=== PATIENT | male | born 1945 | race Caucasian/White ===

== ENCOUNTER 2024-11-07 12:49 | Emergency (ER) | payer MEDICARE, OTHER ==
[2024-11-07] MEDS ORDERED: Sodium Chloride 0.9% 10 ML Syringe FLUSH PRN (12:59)
[2024-11-07 13:21] LABS: BASOPHILS PERCENT AUTO 0.3 % (0.0-1.0); EOSINOPHILS PERCENT AUTO 1.9 % (1.0-3.0); HEMATOCRIT 43.9 % (40.0-54.0); HEMOGLOBIN 14.3 g/dL (14.0-18.0); LYMPHOCYTES PERCENT AUTO 13.5 % (20.5-50.1); MEAN CORPUSCULAR HEMOGLOBIN 32.1 pg (27.0-34.0); MEAN CORPUSCULAR HGB CONC 32.6 g/dL (33.0-35.0); MEAN CORPUSCULAR VOLUME 98.4 fL (80-100); MONOCYTES PERCENT AUTO 13.8 % (2-8); NEUTROPHILS PERCENT AUTO 70.5 % (42.2-75.2); PLATELET COUNT,PLT 139 10^3/uL (150-450); RED BLOOD CELL COUNT 4.46 10^6/uL (4.6-6.2); WHITE BLOOD CELL COUNT,WBC 7.9 10^3/uL (5.0-10.0)
[2024-11-07 13:22] LABS: AMPHETAMINES,URINE NEGATIVE (NEGATIVE); APPEARANCE,URINE CLOUDY (CLEAR); BARBITURATES,URINE NEGATIVE (NEGATIVE); BENZODIAZEPINE,URINE NEGATIVE (NEGATIVE); BILIRUBIN,URINE NEGATIVE (NEGATIVE); COLOR,URINE YELLOW (YELLOW); GLUCOSE,URINE NEGATIVE (NEGATIVE); KETONES,URINE NEGATIVE (NEGATIVE); LEUKOCYTE ESTERASE,URINE SMALL (NEGATIVE); MDMA (ECSTASY), URINE NEGATIVE (NEGATIVE); METHADONE,URINE NEGATIVE (NEGATIVE); METHAMPHETAMINES,URINE NEGATIVE (NEGATIVE); NITRITE,URINE NEGATIVE (NEGATIVE); OCCULT BLOOD,URINE SMALL (NEGATIVE); OPIATES,URINE NEGATIVE (NEGATIVE); OXYCODONE,URINE NEGATIVE (NEGATIVE); PHENCYCLIDINE,URINE NEGATIVE (NEGATIVE); PROTEIN,URINE 100 (NEGATIVE); TCA,URINE NEGATIVE (NEGATIVE)
[2024-11-07 13:30] LABS: BACTERIA,URINE FEW /HPF (0-FEW/HPF); EPITHELIAL CELLS,URINE RARE /HPF (NOT SEEN); WBC,URINE >100 /HPF (0-5/HPF)
[2024-11-07 13:39] LABS: INR 1.4 (0.9-1.2); PROTHROMBIN TIME 14.6 SEC (9.0-12.0)
[2024-11-07 13:42] LABS: ALANINE AMINOTRANSFERASE,ALT 20 U/L (16-63); ALBUMIN 2.4 g/dL (3.4-5.0); ALKALINE PHOSPHATASE 178 U/L (46-116); ANION GAP 12.4 mEq/L (7-13); ASPARTATE AMNIOTRANSFERASE,AST 33 U/L (15-37); BILIRUBIN TOTAL 2.6 mg/dL (0.2-1.0); BLOOD UREA NITROGEN,BUN 27 mg/dL (7-18); BUN/CREATININE RATIO 17.1 (No establ ref range); CALCIUM 9.3 mg/dL (8.5-10.1); CARBON DIOXIDE,CO2 31 mmol/L (21-32); CHLORIDE,CL 109 mmol/L (98-107); CREATININE 1.58 mg/dL (0.70-1.30); LIPASE 36 U/L (16-77); MAGNESIUM 1.9 mg/dL (1.8-2.4); POTASSIUM,K 4.4 mmol/L (3.5-5.1); PROTEIN TOTAL,TP 6.8 g/dL (6.4-8.2); SODIUM,NA 148 mmol/L (136-145)
[2024-11-07 13:43] LABS: LACTIC ACID 2.5 mmol/L (0.4-2.0)
[2024-11-07 13:44] LABS: A/G RATIO 0.55; B-TYPE NATRIURETIC PEPTIDE,BNP 424 pg/ml (0-100); ESTIMATED GFR 44 mL/min (>=60)
[2024-11-07 13:47] LABS: GLUCOSE RANDOM 123 mg/dL (70-99)
[2024-11-07] MEDS: Lactated Ringers 1,000 ML IV ONE (13:56)
[2024-11-07] MEDS: cefTRIAXone 1 GM Vial IVPUSH ONE (14:10)
[2024-11-07] MEDS: Bumetanide 1 MG/4 ML MDV IVPUSH ONE (14:26)
[2024-11-07] MEDS: Take Home: Nitrofurantoin Monohydrate/Macrocrystalline 100 MG, 6 Cap Pack PO ONE (15:23)
[2024-11-07 15:42] VITALS: BP 102/53; PULSE 79
== END 2024-11-07 15:33 | disposition home or self-care (01) ==
LOC: DL.ED 12:49
DX: R41.82 Altered mental status, unspecified (principal); I11.0 Hypertensive heart disease with heart failure; I50.9 Heart failure, unspecified; E66.9 Obesity, unspecified; N39.0 Urinary tract infection, site not specified; Z79.899 Other long term (current) drug therapy
CPT/HCPCS: 36415; 70450; 71045; 80053; 80305; 81001; 82140; 83605; 83690; 83735; 83880; 84484; 85025; 85610; 85730; 86140; 87040; 87086; 87428; 93005; 96361; 96374; 96375; 99285; A9270; J0696; J3490; J7120; 87088; 87186; 93010

== ENCOUNTER 2025-01-18 12:47 | Emergency (ER) | payer MEDICARE, OTHER, MEDICAID ==
[2025-01-18 13:17] VITALS: BP 109/58; PULSE 89
[2025-01-18 13:20] LABS: BASOPHILS PERCENT AUTO 0.3 % (0.0-1.0); HEMATOCRIT 35.8 % (40.0-54.0); HEMOGLOBIN 11.7 g/dL (14.0-18.0); LYMPHOCYTES PERCENT AUTO 13.8 % (20.5-50.1); MEAN CORPUSCULAR HEMOGLOBIN 33.1 pg (27.0-34.0); MEAN CORPUSCULAR HGB CONC 32.7 g/dL (33.0-35.0); MEAN CORPUSCULAR VOLUME 101.4 fL (80-100); MONOCYTES PERCENT AUTO 16.2 % (2-8); NEUTROPHILS PERCENT AUTO 63.7 % (42.2-75.2); PLATELET COUNT,PLT 121 10^3/uL (150-450); RED BLOOD CELL COUNT 3.53 10^6/uL (4.6-6.2); WHITE BLOOD CELL COUNT,WBC 6.7 10^3/uL (5.0-10.0)
[2025-01-18 13:41] LABS: ALANINE AMINOTRANSFERASE,ALT 15 U/L (16-63); ALBUMIN 2.1 g/dL (3.4-5.0); ALKALINE PHOSPHATASE 136 U/L (46-116); ANION GAP 7.2 mEq/L (7-13); ASPARTATE AMNIOTRANSFERASE,AST 29 U/L (15-37); BILIRUBIN TOTAL 1.5 mg/dL (0.2-1.0); BLOOD UREA NITROGEN,BUN 20 mg/dL (7-18); BUN/CREATININE RATIO 15.7 (No establ ref range); CALCIUM 9.1 mg/dL (8.5-10.1); CARBON DIOXIDE,CO2 34 mmol/L (21-32); CHLORIDE,CL 105 mmol/L (98-107); CREATININE 1.27 mg/dL (0.70-1.30); INR 1.3 (0.9-1.2); MAGNESIUM 1.5 mg/dL (1.8-2.4); POTASSIUM,K 4.2 mmol/L (3.5-5.1); PROTEIN TOTAL,TP 7.1 g/dL (6.4-8.2); PROTHROMBIN TIME 13.7 SEC (9.0-12.0); SODIUM,NA 142 mmol/L (136-145)
[2025-01-18 13:48] LABS: GLUCOSE RANDOM 156 mg/dL (70-99)
[2025-01-18 13:50] LABS: A/G RATIO 0.42; ESTIMATED GFR 57 mL/min (>=60)
== END 2025-01-18 14:27 ==
LOC: DL.ED 12:47
DX: E72.20 Disorder of urea cycle metabolism, unspecified (principal); I48.91 Unspecified atrial fibrillation; E78.00 Pure hypercholesterolemia, unspecified; I10 Essential (primary) hypertension; I25.2 Old myocardial infarction; F03.90 Unspecified dementia, unspecified severity, without behavioral disturbance, psychotic disturbance, mood disturbance, and anxiety; J44.9 Chronic obstructive pulmonary disease, unspecified; Z79.51 Long term (current) use of inhaled steroids; Z79.899 Other long term (current) drug therapy; Z79.890 Hormone replacement therapy; W18.39XA Other fall on same level, initial encounter; Y93.89 Activity, other specified
CPT/HCPCS: 36415; 70450; 80053; 82140; 83735; 84484; 85025; 85610; 99284

== ENCOUNTER 2025-03-18 09:09 | Inpatient (IN) | payer MEDICAID, MEDICARE, OTHER ==
[2025-03-18] MEDS ORDERED: Sodium Chloride 0.9% 10 ML Syringe FLUSH PRN (09:16)
[2025-03-18 09:38] LABS: BASOPHILS PERCENT AUTO 0.4 % (0.0-1.0); EOSINOPHILS PERCENT AUTO 7.3 % (1.0-3.0); LYMPHOCYTES PERCENT AUTO 13.8 % (20.5-50.1); MONOCYTES PERCENT AUTO 11.9 % (2-8); NEUTROPHILS PERCENT AUTO 66.6 % (42.2-75.2); PLATELET COUNT,PLT 168 10^3/uL (150-450); RED BLOOD CELL COUNT 4.17 10^6/uL (4.6-6.2); WHITE BLOOD CELL COUNT,WBC 10.5 10^3/uL (5.0-10.0)
[2025-03-18 09:54] LABS: A/G RATIO 0.46; ALANINE AMINOTRANSFERASE,ALT 18 U/L (16-63); ASPARTATE AMNIOTRANSFERASE,AST 41 U/L (15-37); BILIRUBIN TOTAL 2.2 mg/dL (0.2-1.0); BLOOD UREA NITROGEN,BUN 27 mg/dL (7-18); CARBON DIOXIDE,CO2 32 mmol/L (21-32); CHLORIDE,CL 109 mmol/L (98-107); CREATININE 1.42 mg/dL (0.70-1.30); ESTIMATED GFR 49 mL/min (>=60); GLUCOSE RANDOM 184 mg/dL (70-99); POTASSIUM,K 4.7 mmol/L (3.5-5.1); PROTEIN TOTAL,TP 7.6 g/dL (6.4-8.2); SODIUM,NA 147 mmol/L (136-145)
[2025-03-18 09:58] LABS: INR 1.3 (0.9-1.2)
[2025-03-18 10:02] LABS: B-TYPE NATRIURETIC PEPTIDE,BNP 323 pg/ml (0-100)
[2025-03-18] MEDS ORDERED: Ondansetron 4 MG/2 ML SDV IVPUSH PRN (13:11)
[2025-03-18 14:21] LABS: O2 DELIVERY DEVICE NASAL CANNULA
[2025-03-18 14:23] LABS: BASE EXCESS ARTERIAL 5 mmol/L ((-2)-(+3)); BICARBONATE,ARTERIAL 31.3 mmol/L (22-26); O2 SATURATION ARTERIAL 95 % (95-100); PCO2 ARTERIAL 57 mmHg (35-45); PH,ARTERIAL 7.36 (7.35-7.45); PO2 ARTERIAL 88 mmHg (70-100)
[2025-03-18] MEDS: methylPREDNISolone Sodium Succinate 40 MG/1 ML SDV IVPUSH SCH (14:36)
[2025-03-18] MEDS: Heparin Sodium 5,000 Units/ML Vial SUBCUT SCH (14:38)
[2025-03-18] MEDS: Metoprolol Tartrate 5 MG/5 ML SDV IVPUSH SCH (14:40)
[2025-03-19 06:29] LABS: BASOPHILS PERCENT AUTO 0.0 % (0.0-1.0); EOSINOPHILS PERCENT AUTO 0.1 % (1.0-3.0); LYMPHOCYTES PERCENT AUTO 5.7 % (20.5-50.1); MONOCYTES PERCENT AUTO 1.6 % (2-8); NEUTROPHILS PERCENT AUTO 92.6 % (42.2-75.2); PLATELET COUNT,PLT 116 10^3/uL (150-450); RED BLOOD CELL COUNT 3.54 10^6/uL (4.6-6.2); WHITE BLOOD CELL COUNT,WBC 17.8 10^3/uL (5.0-10.0)
[2025-03-19 06:48] LABS: ALANINE AMINOTRANSFERASE,ALT 17.0 U/L (16-63); ASPARTATE AMNIOTRANSFERASE,AST 29.0 U/L (15-37); BILIRUBIN TOTAL 2.0 mg/dL (0.2-1.0); BLOOD UREA NITROGEN,BUN 33.0 mg/dL (7-18); CARBON DIOXIDE,CO2 32.0 mmol/L (21-32); CHLORIDE,CL 111.0 mmol/L (98-107); CREATININE 1.7 mg/dL (0.70-1.30); EST CRCL DRUG DOSING (CG) 31.32 mL/min; GLUCOSE RANDOM 129.0 mg/dL (70-99); POTASSIUM,K 5.0 mmol/L (3.5-5.1); PROTEIN TOTAL,TP 6.4 g/dL (6.4-8.2); SODIUM,NA 148.0 mmol/L (136-145)
[2025-03-19 06:53] LABS: A/G RATIO 0.42; ESTIMATED GFR 40.0 mL/min (>=60)
[2025-03-19 07:40] LABS: O2 DELIVERY DEVICE NASAL CANNULA; O2 SATURATION ARTERIAL 96 % (95-100); PCO2 ARTERIAL 39 mmHg (35-45); PH,ARTERIAL 7.48 (7.35-7.45); PO2 ARTERIAL 80 mmHg (70-100)
[2025-03-19 07:41] LABS: BASE EXCESS ARTERIAL 5 mmol/L ((-2)-(+3)); BICARBONATE,ARTERIAL 28.7 mmol/L (22-26); O2 FLOW RATE 3
[2025-03-19] MEDS: Ampicillin/Sulbactam Na 1.5 GM in Sodium Chloride 0.9% 100 ML IV SCH (12:13)
[2025-03-19] MEDS ORDERED: Lactulose Soln 10 GM/15 ML 30 ML UD Cup PO SCH (14:00)
[2025-03-20 06:26] LABS: BASOPHILS PERCENT AUTO 0.1 % (0.0-1.0); EOSINOPHILS PERCENT AUTO 0.6 % (1.0-3.0); LYMPHOCYTES PERCENT AUTO 10.7 % (20.5-50.1); MONOCYTES PERCENT AUTO 8.4 % (2-8); NEUTROPHILS PERCENT AUTO 80.2 % (42.2-75.2); PLATELET COUNT,PLT 132 10^3/uL (150-450); RED BLOOD CELL COUNT 3.67 10^6/uL (4.6-6.2); WHITE BLOOD CELL COUNT,WBC 12.6 10^3/uL (5.0-10.0)
[2025-03-20 06:41] LABS: BLOOD UREA NITROGEN,BUN 46.0 mg/dL (7-18); CARBON DIOXIDE,CO2 32.0 mmol/L (21-32); CHLORIDE,CL 112.0 mmol/L (98-107); CREATININE 1.56 mg/dL (0.70-1.30); EST CRCL DRUG DOSING (CG) 34.13 mL/min; GLUCOSE RANDOM 103.0 mg/dL (70-99); POTASSIUM,K 3.9 mmol/L (3.5-5.1); SODIUM,NA 149.0 mmol/L (136-145)
[2025-03-20 06:48] LABS: ESTIMATED GFR 44.0 mL/min (>=60)
[2025-03-20] MEDS ORDERED: Potassium Chloride 10 MEQ Tab.ER PO SCH (09:00)
[2025-03-22 07:59] LABS: BASOPHILS PERCENT AUTO 0.2 % (0.0-1.0); EOSINOPHILS PERCENT AUTO 10.8 % (1.0-3.0); LYMPHOCYTES PERCENT AUTO 17.5 % (20.5-50.1); MONOCYTES PERCENT AUTO 11.2 % (2-8); NEUTROPHILS PERCENT AUTO 60.3 % (42.2-75.2); PLATELET COUNT,PLT 78 10^3/uL (150-450); RED BLOOD CELL COUNT 3.67 10^6/uL (4.6-6.2); WHITE BLOOD CELL COUNT,WBC 4.7 10^3/uL (5.0-10.0)
[2025-03-22 08:12] LABS: A/G RATIO 0.47; ALANINE AMINOTRANSFERASE,ALT 18.0 U/L (16-63); ASPARTATE AMNIOTRANSFERASE,AST 29.0 U/L (15-37); BILIRUBIN TOTAL 1.7 mg/dL (0.2-1.0); BLOOD UREA NITROGEN,BUN 32.0 mg/dL (7-18); CARBON DIOXIDE,CO2 31.0 mmol/L (21-32); CHLORIDE,CL 116.0 mmol/L (98-107); CREATININE 1.22 mg/dL (0.70-1.30); EST CRCL DRUG DOSING (CG) 43.65 mL/min; ESTIMATED GFR 59.0 mL/min (>=60); GLUCOSE RANDOM 116.0 mg/dL (70-99); POTASSIUM,K 4.1 mmol/L (3.5-5.1); PROTEIN TOTAL,TP 6.6 g/dL (6.4-8.2); SODIUM,NA 151.0 mmol/L (136-145)
[2025-03-22 10:53] VITALS: BP 112/68; PULSE 62
== END 2025-03-22 10:45 | disposition other institution (70) | DRG 177 ==
LOC: DL.ED 09:09 → DL.MS 11:30 → OBSVTOIN 03-20 18:03
PROVIDERS: ADMIT Internal Medicine; ATTEND Internal Medicine
PROC: 4A133R1 Monitoring of Arterial Saturation, Peripheral, Percutaneous Approach (ICD-10-PCS; principal; 2025-03-18)
DX: J69.0 Pneumonitis due to inhalation of food and vomit (principal); J96.01 Acute respiratory failure with hypoxia; I10 Essential (primary) hypertension; J44.0 Chronic obstructive pulmonary disease with (acute) lower respiratory infection; Z66 Do not resuscitate; F03.90 Unspecified dementia, unspecified severity, without behavioral disturbance, psychotic disturbance, mood disturbance, and anxiety; Z79.890 Hormone replacement therapy; I48.91 Unspecified atrial fibrillation; E03.9 Hypothyroidism, unspecified; K21.9 Gastro-esophageal reflux disease without esophagitis; H91.90 Unspecified hearing loss, unspecified ear; H54.7 Unspecified visual loss; E78.00 Pure hypercholesterolemia, unspecified; I25.2 Old myocardial infarction; M19.90 Unspecified osteoarthritis, unspecified site; N18.30 Chronic kidney disease, stage 3 unspecified; F43.12 Post-traumatic stress disorder, chronic; G40.909 Epilepsy, unspecified, not intractable, without status epilepticus; I12.9 Hypertensive chronic kidney disease with stage 1 through stage 4 chronic kidney disease, or unspecified chronic kidney disease; E66.9 Obesity, unspecified; Z68.29 Body mass index [BMI] 29.0-29.9, adult; Z90.49 Acquired absence of other specified parts of digestive tract; Z87.820 Personal history of traumatic brain injury; Z79.899 Other long term (current) drug therapy
CPT/HCPCS: 36415 ×3; 36600 ×2; 70450; 71045 ×2; 80048; 80053 ×2; 82140; 82803 ×2; 83735 ×2; 83880; 85025 ×3; 85610; 94640 ×4; 96365; 96366; 96367; 96372 ×4; 96375; 96376 ×4; 99285 ×2; G0378 ×5; J0295 ×6; J1644 ×7; J1953 ×4; J2359; J2919 ×2; J3490 ×4; J7620 ×8; S5010; A9270-GY

== ENCOUNTER 2025-04-02 08:21 | Inpatient (IN) | payer OTHER ==
[2025-04-02 09:19] LABS: PLATELET COUNT,PLT 129 10^3/uL (150-450); RED BLOOD CELL COUNT 4.68 10^6/uL (4.6-6.2); WHITE BLOOD CELL COUNT,WBC 8.6 10^3/uL (5.0-10.0)
[2025-04-02 09:21] LABS: O2 DELIVERY DEVICE NASAL CANNULA
[2025-04-02 09:23] LABS: PH,VENOUS 7.30 (7.31-7.41)
[2025-04-02 09:24] LABS: PCO2 VENOUS 66 mmHg (41-51)
[2025-04-02 09:25] LABS: BASE EXCESS VENOUS 2.9 mmol/l ((-2)-(+3)); BICARBONATE,VENOUS 31 mmol/l (19-25); O2 SATURATION VENOUS 43.7 % (60-80); PO2 VENOUS 36 mmHg (35-42)
[2025-04-02 09:37] LABS: BASOPHILS PERCENT AUTO 0.5 % (0.0-1.0); EOSINOPHILS PERCENT AUTO 1.9 % (1.0-3.0); LYMPHOCYTES PERCENT AUTO 14.4 % (20.5-50.1); MONOCYTES PERCENT AUTO 13.3 % (2-8); NEUTROPHILS PERCENT AUTO 69.9 % (42.2-75.2)
[2025-04-02] MEDS: Dexamethasone 4 MG/ML SDV IVPUSH ONE (09:40)
[2025-04-02 09:45] LABS: BLOOD UREA NITROGEN,BUN 39.0 mg/dL (7-18); CARBON DIOXIDE,CO2 32.0 mmol/L (21-32); CREATININE 2.14 mg/dL (0.70-1.30); EST CRCL DRUG DOSING (CG) 24.02 mL/min; GLUCOSE RANDOM 116.0 mg/dL (70-99); PROTEIN TOTAL,TP 7.6 g/dL (6.4-8.2)
[2025-04-02 09:46] LABS: ALANINE AMINOTRANSFERASE,ALT 25.0 U/L (16-63); ASPARTATE AMNIOTRANSFERASE,AST 39.0 U/L (15-37); BILIRUBIN TOTAL 2.8 mg/dL (0.2-1.0)
[2025-04-02 09:51] LABS: CHLORIDE,CL 123.0 mmol/L (98-107); POTASSIUM,K 5.1 mmol/L (3.5-5.1)
[2025-04-02 09:53] LABS: A/G RATIO 0.41; ESTIMATED GFR 30.0 mL/min (>=60); SODIUM,NA 164.0 mmol/L (136-145)
[2025-04-02 09:56] LABS: BAND PERCENT MAN 2 %; EOSINOPHILS PERCENT MAN 2 % (1-3); LYMPHOCYTES PERCENT MAN 14 % (20-50); MONOCYTES PERCENT MAN 10 % (2-8); SEG NEUTROPHILS PERCENT MAN 72 % (42-75)
[2025-04-02] MEDS: Iopamidol 612 MG/ML 100 ML Bottle IVPUSH ONE (10:22)
[2025-04-02 11:51] LABS: LACTIC ACID 4.2 mmol/L (0.4-2.0)
[2025-04-02] MEDS ORDERED: Sodium Chloride 0.9% 10 ML Syringe FLUSH PRN (13:07)
[2025-04-02] MEDS ORDERED: Ondansetron 4 MG/2 ML SDV IVPUSH PRN (13:07)
[2025-04-02 14:17] LABS: IRON,FE 81.0 ug/dL (65-175); PERCENT FE SATURATION 55.1 % (20.0-50.0)
[2025-04-02 14:29] LABS: BILIRUBIN DIRECT 1.0 mg/dL (0.0-0.2); FOLIC ACID 14.1 ng/mL (8.6-58.9); GAMMA GLUTAMYL TRANSFERASE,GGT 52.0 U/L (15-85)
[2025-04-02 14:38] LABS: SODIUM,NA 161.0 mmol/L (136-145)
[2025-04-02] MEDS ORDERED: Bumetanide 1 MG/4 ML MDV IVPUSH SCH (16:00)
[2025-04-02] MEDS: Metoprolol Tartrate 5 MG/5 ML SDV IVPUSH SCH (16:31)
[2025-04-02] MEDS: Lactulose Soln 10 GM/15 ML 30 ML UD Cup PO SCH (16:59)
[2025-04-02] MEDS: Lactulose Soln 10 GM/15 ML 946 ML Bottle RECTAL SCH (17:01)
[2025-04-02] MEDS ORDERED: OLANZAPINE 10 MG PO SCH (19:45)
[2025-04-02 20:38] LABS: BLOOD UREA NITROGEN,BUN 45.0 mg/dL (7-18); CARBON DIOXIDE,CO2 29.0 mmol/L (21-32); CHLORIDE,CL 123.0 mmol/L (98-107); CREATININE 2.51 mg/dL (0.70-1.30); EST CRCL DRUG DOSING (CG) 20.48 mL/min; GLUCOSE RANDOM 180.0 mg/dL (70-99); POTASSIUM,K 4.8 mmol/L (3.5-5.1)
[2025-04-02] MEDS: methylPREDNISolone Sodium Succinate 40 MG/1 ML SDV IVPUSH SCH (20:42)
[2025-04-02 20:49] LABS: ESTIMATED GFR 25.0 mL/min (>=60); SODIUM,NA 164.0 mmol/L (136-145)
[2025-04-02 20:53] LABS: T4 FREE 1.65 ng/dL (0.76-1.46); TSH ULTRASENSITIVE 0.41 uIU/mL (0.36-3.74)
[2025-04-02] MEDS ORDERED: 5% Dextrose and 0.2% Sodium Chloride 1,000 ML Bag IV SCH (21:00)
[2025-04-02] MEDS: Lactulose Soln 10 GM/15 ML 30 ML UD Cup PO ONE (21:27)
[2025-04-03] MEDS: Sodium Chloride 0.9% 10 ML Syringe FLUSH SCH (01:05)
[2025-04-03] MEDS: Lactulose Soln 10 GM/15 ML 30 ML UD Cup SCH (03:57)
[2025-04-03 06:56] LABS: BASOPHILS PERCENT AUTO 0.0 % (0.0-1.0); EOSINOPHILS PERCENT AUTO 0.0 % (1.0-3.0); LYMPHOCYTES PERCENT AUTO 10.9 % (20.5-50.1); MONOCYTES PERCENT AUTO 4.9 % (2-8); NEUTROPHILS PERCENT AUTO 84.2 % (42.2-75.2); PLATELET COUNT,PLT 99 10^3/uL (150-450); RED BLOOD CELL COUNT 3.66 10^6/uL (4.6-6.2); WHITE BLOOD CELL COUNT,WBC 6.9 10^3/uL (5.0-10.0)
[2025-04-03 07:27] LABS: ALANINE AMINOTRANSFERASE,ALT 22.0 U/L (16-63); ASPARTATE AMNIOTRANSFERASE,AST 35.0 U/L (15-37); BILIRUBIN TOTAL 1.5 mg/dL (0.2-1.0); BLOOD UREA NITROGEN,BUN 41.0 mg/dL (7-18); CARBON DIOXIDE,CO2 27.0 mmol/L (21-32); CHLORIDE,CL 119.0 mmol/L (98-107); CREATININE 1.96 mg/dL (0.70-1.30); EST CRCL DRUG DOSING (CG) 26.22 mL/min; GLUCOSE RANDOM 312.0 mg/dL (70-99); POTASSIUM,K 3.9 mmol/L (3.5-5.1); PROTEIN TOTAL,TP 6.3 g/dL (6.4-8.2); SODIUM,NA 156.0 mmol/L (136-145)
[2025-04-03 07:30] LABS: A/G RATIO 0.37; ESTIMATED GFR 34.0 mL/min (>=60)
[2025-04-03] MEDS ORDERED: 50% Dextrose in Water 50 ML Syringe IVPUSH PRN (07:34)
[2025-04-03] MEDS: Lactulose Soln 10 GM/15 ML 30 ML UD Cup PO SCH ×2 (08:56→11:23)
[2025-04-03] MEDS ORDERED: Lactulose Soln 10 GM/15 ML 30 ML UD Cup PO SCH (09:00)
[2025-04-03] MEDS: Calcium Carbonate/Vitamin D3 1250 MG-5 MCG Tab PO SCH (09:31)
[2025-04-03] MEDS: Meropenem 1 GM SDV IVPUSH SCH (11:23)
[2025-04-03 18:42] LABS: BLOOD UREA NITROGEN,BUN 37.0 mg/dL (7-18); CARBON DIOXIDE,CO2 26.0 mmol/L (21-32); CHLORIDE,CL 114.0 mmol/L (98-107); CREATININE 1.6 mg/dL (0.70-1.30); EST CRCL DRUG DOSING (CG) 32.12 mL/min; GLUCOSE RANDOM 232.0 mg/dL (70-99); POTASSIUM,K 3.5 mmol/L (3.5-5.1); SODIUM,NA 149.0 mmol/L (136-145)
[2025-04-03 18:45] LABS: ESTIMATED GFR 43.0 mL/min (>=60)
[2025-04-04 07:02] LABS: BASOPHILS PERCENT AUTO 0.1 % (0.0-1.0); EOSINOPHILS PERCENT AUTO 0.0 % (1.0-3.0); LYMPHOCYTES PERCENT AUTO 4.1 % (20.5-50.1); MONOCYTES PERCENT AUTO 5.0 % (2-8); NEUTROPHILS PERCENT AUTO 90.8 % (42.2-75.2); PLATELET COUNT,PLT 125 10^3/uL (150-450); RED BLOOD CELL COUNT 4.33 10^6/uL (4.6-6.2); WHITE BLOOD CELL COUNT,WBC 16.2 10^3/uL (5.0-10.0)
[2025-04-04 07:44] LABS: ALANINE AMINOTRANSFERASE,ALT 30.0 U/L (16-63); ASPARTATE AMNIOTRANSFERASE,AST 46.0 U/L (15-37); BILIRUBIN TOTAL 2.1 mg/dL (0.2-1.0); BLOOD UREA NITROGEN,BUN 37.0 mg/dL (7-18); CREATININE 1.68 mg/dL (0.70-1.30); EST CRCL DRUG DOSING (CG) 30.59 mL/min; POTASSIUM,K 3.8 mmol/L (3.5-5.1); PROTEIN TOTAL,TP 7.4 g/dL (6.4-8.2); T4 FREE 1.46 ng/dL (0.76-1.46); TSH ULTRASENSITIVE 0.54 uIU/mL (0.36-3.74)
[2025-04-04 07:50] LABS: GLUCOSE RANDOM 183.0 mg/dL (70-99); SODIUM,NA 154.0 mmol/L (136-145)
[2025-04-04 08:00] LABS: A/G RATIO 0.4; CARBON DIOXIDE,CO2 30.0 mmol/L (21-32); CHLORIDE,CL 115.0 mmol/L (98-107); ESTIMATED GFR 40.0 mL/min (>=60)
[2025-04-04] MEDS: Lactulose Soln 10 GM/15 ML 30 ML UD Cup PO SCH (09:07)
[2025-04-04 09:31] VITALS: BP 140/74; PULSE 38
== END 2025-04-05 10:10 | disposition expired | DRG 177 ==
LOC: DL.ED 08:21 → DL.MS 11:00 → DL.ED 12:30
PROVIDERS: ADMIT Student in an Organized Health Care Education/Training Program; ATTEND Internal Medicine
PROC: 3E03329 Introduction of Other Anti-infective into Peripheral Vein, Percutaneous Approach (ICD-10-PCS; principal; 2025-04-02)
PROC: 0T9B70Z Drainage of Bladder with Drainage Device, Via Natural or Artificial Opening (ICD-10-PCS; 2025-04-02)
DX: U07.1 COVID-19 (principal); J18.9 Pneumonia, unspecified organism; J12.82 Pneumonia due to coronavirus disease 2019; J69.0 Pneumonitis due to inhalation of food and vomit; J96.21 Acute and chronic respiratory failure with hypoxia; E87.0 Hyperosmolality and hypernatremia; J44.0 Chronic obstructive pulmonary disease with (acute) lower respiratory infection; N17.9 Acute kidney failure, unspecified; E87.29 Other acidosis; J98.11 Atelectasis; Z66 Do not resuscitate; Z51.5 Encounter for palliative care; F03.90 Unspecified dementia, unspecified severity, without behavioral disturbance, psychotic disturbance, mood disturbance, and anxiety; K74.60 Unspecified cirrhosis of liver; H54.7 Unspecified visual loss; I48.91 Unspecified atrial fibrillation; E78.00 Pure hypercholesterolemia, unspecified; K21.9 Gastro-esophageal reflux disease without esophagitis; M19.90 Unspecified osteoarthritis, unspecified site; F43.10 Post-traumatic stress disorder, unspecified; E87.8 Other disorders of electrolyte and fluid balance, not elsewhere classified; E88.09 Other disorders of plasma-protein metabolism, not elsewhere classified; E66.9 Obesity, unspecified; D69.6 Thrombocytopenia, unspecified; E03.9 Hypothyroidism, unspecified; G40.909 Epilepsy, unspecified, not intractable, without status epilepticus; R13.10 Dysphagia, unspecified; N18.9 Chronic kidney disease, unspecified; K72.90 Hepatic failure, unspecified without coma; E80.6 Other disorders of bilirubin metabolism; D53.9 Nutritional anemia, unspecified; D75.89 Other specified diseases of blood and blood-forming organs; R74.01 Elevation of levels of liver transaminase levels; H91.90 Unspecified hearing loss, unspecified ear; I12.9 Hypertensive chronic kidney disease with stage 1 through stage 4 chronic kidney disease, or unspecified chronic kidney disease; G51.0 Bell's palsy; R00.1 Bradycardia, unspecified; R68.0 Hypothermia, not associated with low environmental temperature; I95.9 Hypotension, unspecified; Z79.52 Long term (current) use of systemic steroids; Z79.899 Other long term (current) drug therapy; Z79.890 Hormone replacement therapy; I25.2 Old myocardial infarction; Z90.89 Acquired absence of other organs; Z99.81 Dependence on supplemental oxygen; Z68.29 Body mass index [BMI] 29.0-29.9, adult; Z98.890 Other specified postprocedural states
CPT/HCPCS: 36415; 71045; 71260; 80053; 82140; 82803; 83605; 85025; 87040; 94640; 96361; 96374; 99285; J1100; J7620; Q9967; 51702; 80048; 82248; 82607; 82728; 82746; 82947; 82977; 83540; 83550; 83735; 84295; 84439; 84443; 93010; 94664; 99223; 99232; 99233; 99238; 99291; A9270-GY; J0456; J0696; J1650; J1815-GY; J1953; J2185; J2270; J2359; J2470; J2919; J3360; J3490; J7030; J7050; J7070